=== PATIENT | female | born 1955 | race Caucasian/White ===

== ENCOUNTER 2018-02-27 10:49 | Emergency (ER) | payer MEDICAID ==
[~2018-02-27] VITALS: Ht 177.8 cm; Wt 77.0 kg
[2018-02-27] MEDS ORDERED: clonazePAM 1mg tablet PO ONE (11:00)
[2018-02-27 11:04] VITALS: BP 132/85
[2018-02-27] MEDS ORDERED: CLON-527 PO (11:07)
== END 2018-02-27 11:10 | disposition home or self-care (01) ==
LOC: ER 10:50
DX: F41.0 Panic disorder [episodic paroxysmal anxiety] (principal); J44.9 Chronic obstructive pulmonary disease, unspecified; G89.29 Other chronic pain; Z88.6 Allergy status to analgesic agent; Z88.5 Allergy status to narcotic agent
CPT/HCPCS: 99284